=== PATIENT | female | born 1995 | race African-American/Black ===

== ENCOUNTER 2021-05-28 23:03 | Emergency (ER) | payer OTHER ==
[~2021-05-28] VITALS: Ht 162.6 cm; Wt 59.0 kg
[2021-05-29 00:43] VITALS: BP 128/83
[2021-05-29] MEDS ORDERED: methylPREDNISolone SOD SUCC 125 MG/2 ML VL IM ONE (01:00)
[2021-05-29] MEDS ORDERED: KETOROLAC TROMETH 60MG/2ML VIAL IM ONE (01:00)
== END 2021-05-29 02:03 | disposition home or self-care (01) ==
LOC: ER 23:06
DX: S00.86XA Insect bite (nonvenomous) of other part of head, initial encounter (principal); W57.XXXA Bitten or stung by nonvenomous insect and other nonvenomous arthropods, initial encounter; Y93.89 Activity, other specified; Y92.89 Other specified places as the place of occurrence of the external cause; Y99.8 Other external cause status
CPT/HCPCS: 96372; 99284; J1885; J2930

== ENCOUNTER → 2021-06-28 | Emergency (ER) | payer MEDICAID, OTHER ==
[~2021-06-28] VITALS: Ht 162.6 cm; Wt 68.0 kg
[2021-06-28 18:00] VITALS: BP 107/65
== END | disposition left against medical advice (07) ==
LOC: ER 17:33
DX: R51.9 Headache, unspecified (principal); R22.0 Localized swelling, mass and lump, head; Z53.21 Procedure and treatment not carried out due to patient leaving prior to being seen by health care provider